=== PATIENT | male | born 1995 | race Caucasian/White ===

== ENCOUNTER 2016-11-03 17:37 | Emergency (ER) | payer OTHER ==
[~2016-11-03] VITALS: Ht 182.9 cm; Wt 100.2 kg
[~2016-11-03 17:37] MED LIST: CIPRO500 MG PO; NAPROSYN500 MG PO
[2016-11-03 19:34] VITALS: BP 123/94
== END 2016-11-03 19:35 | disposition home or self-care (01) ==
LOC: EME 17:37
PROC: 08C9XZZ Extirpation of Matter from Left Cornea, External Approach (ICD-10-PCS; principal; 2016-11-03)
DX: T15.02XA Foreign body in cornea, left eye, initial encounter (principal); W22.8XXA Striking against or struck by other objects, initial encounter; Y99.0 Civilian activity done for income or pay
CPT/HCPCS: 99281; 99283

== ENCOUNTER 2017-02-20 17:52 | Emergency (ER) | payer OTHER ==
[~2017-02-20] VITALS: Ht 180.3 cm; Wt 101.1 kg
[2017-02-20 18:34] LABS: EOSINOPHIL (%) 1.1 % (0-5); EOSINOPHIL COUNT 0.1 K/uL (0-0.3); HEMATOCRIT 49.7 % (38.0-50.0); IMMATURE GRANULOCYTE (%) 0.5 % (0.0-0.7); IMMATURE GRANULOCYTE COUNT 0.1 K/uL; INSTRUMENT ABS NEUTROPHIL CT 6.8 K/uL; LYMPHOCYTE COUNT 1.8 K/uL (1.0-2.8); MCH 30.1 PG (29.0-34.0); MCHC 33.8 G/DL (30.0-36.0); MCV 88.9 FL (86-99); MEAN PLAT.VOLUME 9.4 uM^3 (9.0-12.4); MONOCYTE COUNT 0.6 K/uL (0-0.8); NEUTROPHIL (%) 72.8 % (45-76); NEUTROPHIL COUNT 6.8 K/uL (1.8-6.4); PLATELET COUNT 213 K/uL (156-360); RBC DIS.WIDTH-CV 13.1 % (11.8-14.6); RBC DIS.WIDTH-SD 42.5 % (39-53); RED BLOOD COUNT 5.59 M/uL (4.00-5.50); WHITE BLOOD COUNT 9.4 K/uL (4.1-10.2)
[2017-02-20 18:42] LABS: CHLORIDE 108 mEq/L (99-109); POTASSIUM 5.7 mEq/L (3.7-5.4); SODIUM 139 mEq/L (136-147)
[2017-02-20 18:44] LABS: GLUCOSE 87 mg/dL (70-99)
[2017-02-20 18:45] LABS: ANION GAP 13 MEQ/L (2-14)
[2017-02-20 18:47] LABS: SERUM ETHYL ALCOHOL 60 mg/dL
[2017-02-20 18:48] LABS: GFR ESTIMATE (CALCULATED) > 59 mL/min/
[2017-02-20 18:49] LABS: UREA NITROGEN (BUN) 13 mg/dL (9-23)
[2017-02-20 18:59] VITALS: BP 113/59
== END 2017-02-20 19:00 | disposition home or self-care (01) ==
LOC: EME 17:52
PROVIDERS: Emergency Medicine
DX: T40.1X1A Poisoning by heroin, accidental (unintentional), initial encounter (principal)
CPT/HCPCS: 80048; 85025; 99281; 99284; G0480; J2310; J7030